=== PATIENT | male | born 1985 ===

== ENCOUNTER 2024-03-15 19:17 | Emergency (ER) | payer OTHER, SELFPAY ==
[2024-03-15] VITALS (7 sets, daily range): BP systolic 134–158; BP diastolic 89–99; PULSE 63–93; RESP 18; TEMP 36.9; O2SAT 92–99; BMI 28.7
--- NOTE | 2024-03-15 20:19 | XR_ITS ---
Patient: SOUTH BRIAN Facility:?[facility] Patient ID:?[id number] Site Patient ID:?[id number] Site :?[id number] Study:?XRay-Chest 2 VIEW-03/15/2024 8:36:20 PM Ordering Physician:KOKI Final Report: INDICATIONS: Shortness of breath. URI symptoms. TECHNIQUE: Chest 2 view. COMPARISON: None FINDINGS: No pneumothorax or pleural effusion. Lungs are clear. Cardiac and mediastinal contours are within normal limits. Upper abdomen and osseous structures as imaged show no acute abnormality. IMPRESSION: No evidence of acute cardiopulmonary disease. Dictated by Harmeet Dias MD @ 03/15/2024 8:42:15 PM Signed by:?Harmeet Dias MD @03/15/2024 8:42:15 PM (Electronic Signature)
[2024-03-15 20:30] LABS: PCR FLU A Negative PCR FLU A (Negative); PCR FLU B Negative PCR FLU B (Negative); PCR RSV Negative PCR RSV (Negative); SARS PCR* Negative SARS-CoV-2 (Negative)
[2024-03-15 20:35] LABS: Basophils Absolute Auto 0.06 K/uL (0.00-0.30); Basophils Percent Auto 0.7 % (0.0-3.0); Eosinophils Percent Auto 11.1 % (0.0-7.0); Hematocrit 48.5 % (37.0-53.0); Hemoglobin* 16.4 gm/dL (13.5-17.5); Immature Granulocytes Abs Auto 0.01 K/uL (0.00-0.30); Immature Granulocytes Pct Auto 0.1 %; Lymphocytes Percent Auto 26.4 % (20-44); Mean Corpuscular HGB Conc 34 gm/dL (32-36); Mean Corpuscular Hemoglobin 28 pg (26-34); Mean Corpuscular Volume 84 fL (80-100); Monocytes Percent Auto 8.4 % (0.0-11.0); Neutrophils Absolute Auto 4.85 K/uL (1.7-7.0); Neutrophils Percent Auto 53.3 % (42.0-72.0); Platelet Count* 189 K/uL (140-440); RDW Coefficient of Variation % 12.1 % (11.5-15.5); Red Blood Count 5.77 m/uL (4.30-5.90); White Blood Count* 9.09 K/uL (4.50-11.00)
[2024-03-15] MEDS: ALBUTEROL SULFATE 2.5 MG/3 ML VIAL.NEB 5 MG NEB (20:35)
[2024-03-15 20:46] LABS: Slide Review Reflex No
[2024-03-15 20:48] LABS: Chloride* 107 mmol/L (96-114)
[2024-03-15 20:49] LABS: Potassium* 4.2 mmol/L (3.6-5.1); Sodium* 141 mmol/L (135-149)
[2024-03-15 20:51] LABS: Creatinine* 0.7 mg/dL (0.5-1.5); Est. Creatinine Clearance* 149.19; Estimated Glomerular Filt Rate 122 ml/min
[2024-03-15 20:52] LABS: Anion Gap 7 mEq/L (7-15); Blood Urea Nitrogen* 17 mg/dL (5-24); Calcium* 9.6 mg/dL (8.4-10.6); Carbon Dioxide* 27 mmol/L (20-32); Glucose* 86 mg/dL (60-115)
--- NOTE | 2024-03-15 21:18 | ED_ITS ---
HPI - General Adult General Date Seen: 03/15/24 Chief complaint: Cough Stated complaint: Diff breathing, hard cough, temp Time Seen by Provider: 03/15/24 20:06 Source: patient Mode of arrival: ambulatory Limitations: no limitations History of Present Illness HPI narrative: Patient is a 38-year-old male presenting to the emergency department for shortness of breath, fevers, fatigue, cough. Symptoms have been going on for the past week but got acutely worse today he states. Tried using some doses inhaler at home with some improvement in his symptoms. Is not aware of any sick contacts. Does state he has some chest pain but notices it most when he has a cough. Did have diarrhea last night but none today. Says whenever he eats he immediately feels bloated. Has a mild headache but denies weakness, numbness, vision changes. He is a nonsmoker. States he had similar symptoms several years ago related to a Guinea pig that he was allergic to. Has not noticed any rashes. No history of asthma or COPD Related Data Home Medications Medication Instructions Recorded Confirmed albuterol 90 mcg/actuation aerosol mcg inhalation 03/15/24 inhaler Allergies Allergy/AdvReac Type Severity Reaction Status Date / Time cat dander Allergy Intermediate Shortness Verified 03/15/24 19:38 of Breath guinea pig Allergy Intermediate Shortness Uncoded 03/15/24 19:38 of Breath Review of Systems Status of ROS: Reports: 10 or more systems reviewed and unremarkable except as noted in History and below [facility] Social History Smoking Status: Never smoker Do you use any of these nicotine containing products: None Second hand tobacco smoke exposure: No How often do you have a drink containing alcohol: 2-3 times a week AUDIT-C Alcohol total score: 3 Non-prescribed substance use: denies use Exam Narrative: Exam Narrative: Const: Well-nourished, Well-developed, in mild distress Eyes: PERRL, no conjunctival injection, and symmetrical lids HENT: Atraumatic external nose and ears. Moist mucous membranes. Neck: Symmetric, trachea midline, No thyromegaly. CVS: RRR, No murmurs or gallops. Peripheral pulses 2+ and equal in all extremit ies RESP: Unlabored respiratory effort. Mild wheezing throughout GI: Nontender/Nondistended, No rebound or guarding. MSK:Extremities w/o deformity, Normal Active ROM Skin: Warm, Dry. No rashes or lesions. Neuro: Normal Muscle tone, No focal neurological deficits. Psych: Awake, Alert, & Oriented x3. Appropriate mood and affect. Const: Vital Signs, click to edit/add: Vital Signs - 24 hr 03/15/24 19:31 03/15/24 20:40 Temperature 98.4 F Pulse Rate 63 Pulse Rate [Pulse Oximeter] 76 Respiratory Rate 18 Blood Pressure [Ri t Upper Arm] 158/99 H Pulse Oximetry 96 99 Oxygen Delivery Me thod Room Air Aerosol Mask Oxygen Flow Rate 5 Course Vital Signs Vital signs: Initial Vital Signs Temperature 98.4 F 03/15/24 19:31 Temperature Source Temporal Artery Scan 03/15/24 19:31 Pulse Rate 76 03/15/24 19:31 Respiratory Rate 18 03/15/24 19:31 Blood Pressure 158/99 H 03/15/24 19:31 Blood Pressure Mean 118 H 03/15/24 19:31 Blood Pressure Position Sitting 03/15/24 19:31 Pulse Oximetry 96 03/15/24 19:31 Oxygen Delivery Method Room Air 03/15/24 19:31 Vital Signs Temperature 98.4 F 03/15/24 19:31 Pulse Rate 76 03/15/24 19:31 Respiratory Rate 18 03/15/24 19:31 Blood Pressure 158/99 H 03/15/24 19:31 Pulse Oximetry 96 03/15/24 19:31 Oxygen Delivery Method Room Air 03/15/24 19:31 Temperature 98.4 F 03/15/24 19:31 Pulse Rate 63 03/15/24 20:40 Respiratory Rate 18 03/15/24 19:31 Blood Pressure 158/99 H 03/15/24 19:31 Pulse Oximetry 99 03/15/24 20:40 Oxygen Delivery Method Aerosol Mask 03/15/24 20:40 Oxygen Flow Rate 5 03/15/24 20:40 Medications Administered Medications: Generic Name Dose Route Start Last Admin Trade Name Freq PRN Reason Stop Dose Admin Albuterol 5 mg 03/15/24 20:18 03/15/24 20:35 Albuterol Sulfate 2.5 Mg/3 Ml Vial.Neb NEB 03/15/24 20:19 5 mg ONCE ONE Administration Medical Decision Making MDM Narrative Medical decision making narrative: Patient is a 38-year-old male presenting for what sounds like viral symptoms. He was having some chest pains all ordered troponin and EKG. Also do a CBC, BMP, COVID/flu/RSV. Chest x-ray also ordered. Will be given albuterol treatment to see but helps with his symptoms. His wheezing did improve after the albuterol. Lab work returned showing no c oncerning abnormalities. EKG shows no concerning findings. His vitals have been stable throughout his time in emergency department. No signs of impending respiratory failure. Chest x-ray reviewed by myself and Radiology shows no acute abnormalities. Despite this I we will treat him with azithromycin. Will also give him inhaler and a spacer to use at home. This was prescribed through [employer]. Lab Data Labs: Lab Results 03/15/24 03/15/24 Range/Units 19:40 20:27 WBC 9.09 (4.50-11.00) K/uL RBC 5.77 (4.30-5.90) m/uL Hgb 16.4 (13.5-17.5) gm/dL Hct 48.5 (37.0-53.0) % MCV 84 (80-100) fL MCH 28 (26-34) pg MCHC 34 (32-36) gm/dL RDW Coeff of [place] 12.1 (11.5-15.5) % Plt Count 189 (140-440) K/uL Neut % (Auto) 53.3 (42.0-72.0) % Lymph % (Auto) 26.4 (20-44) % Long % (Auto) 8.4 (0.0-11.0) % Eos % (Auto) 11.1 H (0.0-7.0) % Baso % (Auto) 0.7 (0.0-3.0) % Neut # (Auto) 4.85 (1.7-7.0) K/uL Lymph # (Auto) 2.40 (0.90-2.90) K/uL Long # (Auto) 0.80 (0.00-0.90) K/UL Eos # (Auto) 1.00 H (0.00-0.50) K/uL Baso # (Auto) 0.06 (0.00-0.30) K/uL Abs Immat Gran (auto) 0.01 (0.00-0.30) K/uL Imm/Tot Granulo (auto) 0.1 % Sodium 141 (135-149) mmol/L Potassium 4.2 (3.6-5.1) mmol/L Chloride 107 (96-114) mmol/L Carbon Dioxide 27 (20-32) mmol/L Anion Gap 7 (7-15) mEq/L BUN 17 (5-24) mg/dL Creatinine 0.7 (0.5-1.5) mg/dL Estimated Creat Clear 149.19 Estimated GFR 122 ml/min Glucose 86 (60-115) mg/dL Calcium 9.6 (8.4-10.6) mg/dL SARS-CoV-2 (PCR) Negative SARS-CoV-2 (Negative) Influenza Type A (PCR) Negative PCR FLU A (Negative) Influenza Type B (PCR) Negative PCR FLU B (Negative) RSV (PCR) Negative PCR RSV (Negative) POC Troponin I 0.00 L (0.01-0.04) ng/ml Imaging Data Chest x-ray: Radiologist's impression: No evidence of acute cardiopulmonary disease. Dictated by Harmeet Dias MD @ 03/15/2024 8:42:15 PM ECG Data Attestation: I personally reviewed and interpreted this ECG as follows: Prior ECG tracings: not available for review Interpretation: Normal sinus rhythm with a rate of 67 beats per minute, normal intervals, normal axis, no ST or T-wave abnormalities Discharge Plan Discharge Patient Disposition: Home, Self-Care Condition: Improved Instructions: Acute Bronchitis (ED) Additional Instructions: take the antibiotics as directed. Use the inhalers as directed. You can pick up driver the medications at [facility]. We will give via temporary spacer to use with the but make sure of to pick up driver the prescribed 1 at your pharmacy. If symptoms persist you follow-up with the primary care provider. If they do get worse or develop any new symptoms return to the emergency department Prescriptions: No Action albuterol 90 mcg/actuation aerosol inhalation Stand Alone Forms: MyHealth Info Instructions
== END 2024-03-15 21:44 | disposition home or self-care (01) ==
PROVIDERS: Emergency Provider Student in an Organized Health Care Education/Training Program
DX: J20.9 Acute bronchitis, unspecified (principal)
CPT/HCPCS: 36415; 71046; 80048; 84484; 85025; 87631; 93005; 94640; 99283; 99284